=== PATIENT | male | born 2005 | race Caucasian/White ===

== ENCOUNTER 2025-04-28 09:19 | Emergency (ER) | payer MEDICAID ==
[~2025-04-28] VITALS: Ht 167.6 cm; Wt 70.6 kg
[2025-04-28] MEDS: IBUPROFEN 600 MG TAB PO ONE (10:43)
[2025-04-28 10:52] VITALS: BP 122/61; TEMP 97.9; O2SAT 99
== END 2025-04-28 10:53 | disposition home or self-care (01) ==
LOC: M ED 09:19
DX: S52.611A Displaced fracture of right ulna styloid process, initial encounter for closed fracture (principal); S52.321A Displaced transverse fracture of shaft of right radius, initial encounter for closed fracture; W07.XXXA Fall from chair, initial encounter; Y92.009 Unspecified place in unspecified non-institutional (private) residence as the place of occurrence of the external cause; Y93.9 Activity, unspecified; Y99.9 Unspecified external cause status

== ENCOUNTER → 2025-04-29 | Outpatient (CLI) | payer MEDICAID | LOC: M SOG 06:59 | PROVIDERS: ATTEND Orthopaedic Surgery | DX: M25.531 Pain in right wrist (principal) ==

== ENCOUNTER → 2025-05-06 | Outpatient (CLI) | payer MEDICAID | LOC: M SOG 07:27 | PROVIDERS: ATTEND Orthopaedic Surgery | DX: M25.531 Pain in right wrist (principal); S52.611A Displaced fracture of right ulna styloid process, initial encounter for closed fracture; S52.501A Unspecified fracture of the lower end of right radius, initial encounter for closed fracture; X58.XXXA Exposure to other specified factors, initial encounter; Y92.9 Unspecified place or not applicable; Y93.9 Activity, unspecified; Y99.9 Unspecified external cause status ==

== ENCOUNTER → 2025-05-13 | Outpatient (CLI) | payer MEDICAID | LOC: M SOG 07:20 | PROVIDERS: ATTEND Orthopaedic Surgery | DX: S52.501A Unspecified fracture of the lower end of right radius, initial encounter for closed fracture (principal); M25.531 Pain in right wrist; W18.30XA Fall on same level, unspecified, initial encounter; Y92.009 Unspecified place in unspecified non-institutional (private) residence as the place of occurrence of the external cause ==

== ENCOUNTER → 2025-05-27 | Outpatient (CLI) | payer MEDICAID | LOC: M SOG 07:21 | PROVIDERS: ATTEND Orthopaedic Surgery | DX: S52.501D Unspecified fracture of the lower end of right radius, subsequent encounter for closed fracture with routine healing (principal); S52.611D Displaced fracture of right ulna styloid process, subsequent encounter for closed fracture with routine healing ==

== ENCOUNTER → 2025-06-10 | Outpatient (CLI) | payer MEDICAID | LOC: M SOG 07:15 | PROVIDERS: ATTEND Orthopaedic Surgery | DX: S52.501P Unspecified fracture of the lower end of right radius, subsequent encounter for closed fracture with malunion (principal) ==